=== PATIENT | male | born 1980 | race Asian ===

== ENCOUNTER 2021-12-28 14:52 | Emergency (ER) | payer OTHER, SELFPAY ==
[2021-12-28 15:30] VITALS: BP 138/86; PULSE 71; RESP 19; TEMP 36.7; O2SAT 98; BMI 18.7
--- NOTE | 2021-12-28 15:33 | XR_ITS ---
FINAL REPORT CLINICAL HISTORY: pain, pt states that he fell and landed on his right arm a few years ago, and it has had lack of mobility ever since. FINDINGS: RIGHT SHOULDER: 3 views of the right shoulder were obtained. There is no acute fracture or dislocation. There are mild degenerative changes of the acromioclavicular and the glenohumeral joints. There is a chronic calcifications superior to the humeral head that may represent calcific tendinitis. 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 Reviewed, Interpreted and Dictated by Luis Pickard III, MD Transcribed by Robby Andres Authenticated and [facility]
--- NOTE | 2021-12-28 15:58 | HMH.EDUTC ---
[facility] [place] Disposition Clinical Impression: Shingles Qualifiers: Herpes zoster complications: without complications Qualified Code(s): B02.9 - Zoster without complications Disposition: Home, Self-Care Condition on Discharge: Good Instructions: Shingles, DI for Shingles, Acyclovir Additional Instructions: Self-care: Apply a cool, wet compress or take a cool bath. This may help decrease itching and pain. Keep your rash clean and dry. Cover your rash with a bandage. Do not use bandages with adhesive. Clothes may irritate your skin. Wash your hands often. Cover a sneeze or cough. Antiviral medicine fights the virus causing your shingles. Start this medicine within 3 days after you notice the first symptoms. This may help prevent nerve pain. A shingles outbreak can cause nerve pain called post-herpetic neuralgia (PHN). PHN can last a long time after you heal from shingles. Prescriptions: Acyclovir 800 mg PO 5XDAY 7 Days #35 tab Transmission Status: Received by [facility] #[id number] Referrals: Hitesh Ireland [Primary Care Provider] - Medical Decision Making - Tyelr Inquiry Pt receiving controlled substance: No Tyler was queried for this patient: No Vital Signs: 12/28/21 15:30 12/28/21 16:15 Temperature 98.0 F 98.0 F Temperature Source Oral Pulse Rate 71 Pulse Rate [Left Brachial] 71 Respiratory Rate 19 19 Blood Pressure 138/86 Blood Pressure [Left Arm] 138/86 Blood Pressure Mean [Left Arm] 103 Blood Pressure Source [Left Arm] Automatic Cuff Blood Pressure Position [Left Arm] Sitting 02 Sat by Pulse Oximetry 98 Oxygen Delivery Method Room Air - Radiology Data #1 Image(s): Shoulder Image Reviewed: Yes I have reviewed radiologist's interpretation IMPRESSION: Chronic calcifications superior to the humeral head may represent calcific tendinitis [facility] [place] HPI - General Stated complaint: rash Time Seen by Provider: 12/28/21 16:03 Mode of Arrival: Ambulatory Source of Information: Patient Limitations: No Limitations Description of Symptoms (Recalled from Triage Doc. by RN): PATIENT C/O HIVES TO BUTTOCK X 3 DAYS. ALSO REPORTS THAT HE HAD A RIGHT ROTATOR CUFF INJURY IN 2018 THAT HEALED WRONG AND WAS NEVER X-RAYED HEENT Symptoms (Recalled from RN notes): No Resp Symptoms (Recalled from RN notes): No Skin Symptoms (Recalled from RN notes): Yes MS Symptoms (Recalled from RN notes): Yes Functional Status (Recalled from RN notes): WNL - History of Present Illness Provider Complaint: Patient states that he noticed he was breaking out in rash on his right buttock area and it sore, hurts and chowdhury States that also he hurt his shoulder several years ago but doesnt think it healed right states that he has pain when he moves it or raises arm States that he has appointment with Dr Hernández but it isnt until the first of January Denies new injury reports just wanted to get it xrayed - Related Data Previous Rx's Medication Instructions Recorded Acyclovir 800 mg PO 5XDAY 7 Days #35 tab 12/28/21 Allergies Allergy/AdvReac Type Severity Reaction Status Date / Time No Known Allergies Allergy Verified 12/28/21 15:47 - Worker's Comp Is this a Worker's Comp case?: No [facility] History - Hepatitis A Screen Attestation statement:: This patient has been screened for Hepatitis A risk factors. I have reviewed the patient's past medical history: Yes - Social History Alcohol Intake: current Occupational Status: other ROS Obtained: Yes All systems reviewed & no additional complaints, Yes Systems reviewed as appropriate & no additional complaints - Constitutional Constitutional: Reports system reviewed and no additional complaints, except as docu, Denies body ache, Denies chills, Denies fever(s) - ENT Ears, Nose, Mouth, and Throat: Reports system reviewed and no additional complaints, except as docu - Cardiovascular Cardiovascular: Reports system reviewed and no additional complaints, except as docu -
[2021-12-28 16:15] VITALS: BP 138/86; PULSE 71; RESP 19; TEMP 36.7; O2SAT 98
== END 2021-12-28 16:20 | disposition home or self-care (01) ==
PROVIDERS: Emergency Provider Nurse Practitioner; PCP Family Medicine
DX: B02.9 Zoster without complications (principal); M75.30 Calcific tendinitis of unspecified shoulder; Z79.899 Other long term (current) drug therapy; Z88.8 Allergy status to other drugs, medicaments and biological substances
CPT/HCPCS: 73030; 99213; G0463